=== PATIENT | male | born 1950 | race Two or more races ===

== ENCOUNTER 2025-05-02 14:52 | Emergency (ER) | payer MEDICAID ==
[~2025-05-02] VITALS: Ht 172.7 cm; Wt 74.8 kg
[2025-05-02 15:40] VITALS: BP 135/67; TEMP 98.2
[2025-05-02] MEDS ORDERED: LIDOCAINE HCL/MPF 1% 30 ML VIAL IJ ONE (16:06)
[2025-05-02] MEDS: LIDOCAINE HCL/PF 1% 30 ML VIAL TP ONE (16:07)
[2025-05-02] MEDS ORDERED: CLIN300C12 PO (16:34)
[2025-05-02 17:20] VITALS: O2SAT 96
== END 2025-05-02 17:20 | disposition home or self-care (01) ==
LOC: ER 15:10
DX: L02.212 Cutaneous abscess of back [any part, except buttock and flank] (principal)
CPT/HCPCS: 99283; 10060; A6407; J3490